=== PATIENT | female | born 1955 | race Caucasian/White ===

== ENCOUNTER 2016-05-23 23:57 | Inpatient (IN) ==
[2016-05-24 01:57] LABS: Basophils # 0.1 K/mcL (0.0-0.2); Basophils % 0.5 %; Eosinophils % 0.2 %; Hematocrit 44.1 % (35.3-44.9); Immature Granulocytes % 0.5 % (0-4); Lymphocytes # 1.3 K/mcL (0.6-4.6); Lymphocytes % 10.8 %; Mean Corpuscular Hemoglobin 30.7 pg (28.0-33.3); Mean Corpuscular Volume 90.4 fL (83.0-100.0); Mean Platelet Volume 8.7 fL (9.4-12.4); Monocytes % 8.9 %; Neutrophils # 9.3 K/mcL (1.6-8.9); Platelet Count 243 K/mcL (140-400); Red Blood Count 4.88 M/mcL (3.82-4.97); Red Cell Distribution Width 12.6 % (11.5-14.5); Segmented Neutrophils % 79.1 %
--- NOTE | 2016-05-24 02:00 | Emergency Department Note ---
Disposition Clinical Impression: Deep vein thrombosis of lower extremity Qualifiers: Affected thrombotic vein of extremity: unspecified vein of extremity Laterality : left Chronicity: acute Qualified Code(s): I82.402 - Acute embolism and thrombosis of unspecified deep veins of left lower extremity Disposition: Admitted As Inpatient Condition: Good Time of Disposition: 02:05 Extremity Problem HPI - General Chief complaint: ED Extremity Problem,Nontraumatic Stated complaint: DVT From GF Time Seen by Provider: 05/24/16 01:37 Source: patient Nursing Notes Reviewed: Yes Vital Signs Reviewed: Yes - History of Present Illness Pt Subjective Complaint: extremity pain Onset (ago): hour(s) Consistency: constant Injury Location: left Pain Scale: 8 Improves with: nothing Worsens with: range of motion, weight bearing, walking Associated symptoms: Reports: swelling, redness. Denies: chest pain, shortness of breath, abdominal pain, bowel/bladder symptoms, fever - Related Data Home Medications Medication Instructions Recorded Confirmed Alendronate Sodium [Fosamax] 70 mg PO QWEEK 05/23/16 05/23/16 Gabapentin [Neurontin] 100 mg PO BID 05/23/16 05/23/16 Lidocaine [Lmx 4] 30 gm TP QID 05/23/16 05/23/16 Meloxicam 7.5 mg PO BID 05/23/16 05/23/16 Methocarbamol [Robaxin-750] 750 mg PO BID 05/23/16 05/23/16 Simvastatin [Zocor] 10 mg PO HS 05/23/16 05/23/16 Allergies Allergy/AdvReac Type Severity Reaction Status Date / Time latex Allergy Rash Verified 05/24/16 00:11 All systems ED: reviewed and negative except as stated. Constitutional: Denies: fever, chills Eyes: Denies: eye pain ENT ED: Denies: ear pain Cardiovascular: Denies: chest pain Respiratory: Denies: cough Gastrointestinal: Denies: abdominal pain Genitourinary: Denies: dysuria Musculoskeletal: Denies: back pain, neck pain Integumentary: Denies: rash, abrasion, lesions Neurological: Denies: headache, weakness, numbness Psychiatric: Denies: anxiety Endocrine: Denies: fatigue Hematological/Lymphatic: Denies: easy bleeding Allergic/Immunologic: Denies: facial swelling Past Medical History - Past Medical History Medical history: Reports: hyperlipidemia Psychiatric history: Reports: no psych history - Social History Smoking Status: Current every day smoker Smokeless Tobacco Status: No Alcohol use: Reports: none Drug use: Reports: none Physical Exam - General Limitations: no limitations General appearance: alert, in no apparent distress - Head Head exam: normocephalic - Eye Eye exam: Present: EOMI - ENT ENT exam: mucous membranes moist - Neck Neck exam: Present: full ROM - Chest Chest inspection: Present: symmetric chest wall rise - Respiratory Respiratory exam: Absent: respiratory distress - Cardiovascular Cardiovascular exam: Present: regular rate - Abdominal Exam Abdominal exam: Present: soft, Non-Tender - Extremities Exam Extremities exam: Present: normal capillary refill - Expanded Lower Extremity Exam Upper leg exam: Present: tenderness, swelling, erythema. Absent: full ROM Knee exam: Present: tenderness, swelling. Absent: full ROM Lower leg exam: Present: tenderness, swelling, erythema. Absent: full ROM Ankle exam: Present: normal inspection Foot/toe exam: Present: normal inspection, full ROM Neurovascular/Tendon exam: Present: normal capillary refill. Absent: pulse deficit Gait: not tested/not observed - Neurological Exam Neurological exam: Present: alert, oriented X3 - Psychiatric Psychiatric exam: Present: normal affect, normal mood - Skin Skin exam: Present: warm, dry, intact, normal color Course Course Narrative: 61-year-old female smoker that arrives by squad with concern for DVT. She was seen at [facility] at the positive d-dimer. Patient was transferred to this facility to undergo lead venous duplex. - Reevaluation(s) Reevaluation #1: Reviewed patient's lower extremity venous duplex, findings were significant for several acute occlusive thrombi on the left extremity. Patient received Lovenox at [facility]. Discussed with Dr. Juárez who also had face to the patient and agreed for admission. Patient discussed with and accepted by Dr. Shaikh. Patient seen and examined. She is resting Things and then no acute distress. She did not look toxic. She had received Toradol at [facility] which she states has not improved. She declines analgesics here, stating as long she does not move her legs she feels fine. She denies any recent fevers, chills, injury, immobility, prior DVT, cancer, shortness of breath, hemoptysis Time: 02:08 Vital Signs Temperature 97.8 F 05/24/16 00:05 Pulse Rate 86 05/24/16 00:05 Respiratory Rate 18 05/24/16 00:05 Blood Pressure 104/63 05/24/16 00:05 O2 Sat by Pulse Oximetry 97 05/24/16 00:05 Temperature 97.8 F 05/24/16 00:05 Pulse Rate 86 05/24/16 00:05 Respiratory Rate 18 05/24/16 00:05 Blood Pressure 104/63 05/24/16 00:05 O2 Sat by Pulse Oximetry 97 05/24/16 00:05 Oxygen Delivery Oxygen Delivery Room Air Extremity Problem, Nontraumati - Lab Data Result diagrams: 05/24/16 01:45 Lab Results 05/24/16 05/24/16 05/24/16 Range/Units 01:45 01:45 01:45 WBC 11.7 H (4.3-11.1) K/mcL RBC 4.88 (3.82-4.97) M/mcL Hgb 15.0 (11.5-15.4) g/dL Hct 44.1 (35.3-44.9) % MCV 90.4 (83.0-100.0) fL MCH 30.7 (28.0-33.3) pg MCHC 34.0 (31.6-35.5) g/dL RDW 12.6 (11.5-14.5) % Plt Count 243 (140-400) K/mcL MPV 8.7 L (9.4-12.4) fL Immature Gran % 0.5 (0-4) % Seg Neutrophils % 79.1 % Lymphocytes % 10.8 % Monocytes % 8.9 % Eosinophils % 0.2 % Basophils % 0.5 % Neutrophils # 9.3 H (1.6-8.9) K/mcL Lymphocytes # 1.3 (0.6-4.6) K/mcL Monocytes # 1.0 (0.0-1.3) K/mcL Eosinophils # 0.0 (0.0-0.6) K/mcL Basophils # 0.1 (0.0-0.2) K/mcL PT 14.4 H (9.4-12.1) Seconds INR 1.3 APTT 37.4 H (26.0-36.0) Seconds Total Bilirubin 0.4 (0.2-1.2) mg/dL Direct Bilirubin 0.2 (0.0-0.5) mg/dL Indirect Bilirubin 0.2 (0.0-1.2) mg/dL AST 24 (5-34) Units/L ALT 41 (0-55) Units/L Alkaline Phosphatase 76 (38-126) Units/L Serum Total Protein 7.8 (6.0-8.3) g/dL Albumin 4.0 (3.5-5.0) g/dL Globulin 3.8 H (2.4-3.5) g/dL Albumin/Globulin Ratio 1.1 (1.1-2.2) Attestation Statement - Attestation Attestation: I, Juan Juárez MD, personally performed a history and physical exam of the patient and discussed their management with the midlevel provicer, PAC/LEAN LEADER. I reviewed the midlevel provider's note and agree with the documented findings, medical decision making, and plan of care. 61-year-old female transferred here from [facility] for possible DVT of the left leg. No prior history of DVT. Patient states that her leg was fine earlier today and she took a nap this afternoon. When she awoke about 4: 30 PM the left leg was painful and swollen and discolored. Denies any injury. There is been no cough or chest pain or shortness of breath. No fever. On examination patient is a well-developed well-nourished well-appearing female in no acute distress. She is alert and oriented 3. There is no cyanosis or diaphoresis. Breath sounds are clear and equal bilaterally. Heart regular rate and rhythm. Abdomen soft and nontender with normal bowel sounds. Left lower extremity is diffusely swollen from the groin down to the toes. There is some mild dusky discoloration. She has a strong palpable dorsalis pedis pulse. Labs reviewed. Venous Doppler of the left lower extremity was positive for diffuse acute thrombosis all the way up into the distal iliac veins. The hospitalist, Dr. Shaikh, was consulted and accepted admission of the patient.
[2016-05-24 02:03] LABS: INR 1.3; Prothrombin Time 14.4 Seconds (9.4-12.1)
[2016-05-24 02:05] LABS: Activated Partial Thrombo Time 37.4 Seconds (26.0-36.0)
[2016-05-24 02:13] LABS: Albumin/Globulin Ratio 1.1 (1.1-2.2); Bilirubin,Direct 0.2 mg/dL (0.0-0.5); Bilirubin,Indirect 0.2 mg/dL (0.0-1.2); Bilirubin,Total 0.4 mg/dL (0.2-1.2); Globulin 3.8 g/dL (2.4-3.5); Total Protein 7.8 g/dL (6.0-8.3)
[2016-05-24] MEDS ORDERED: Acetaminophen 325 MG TABLET PO PRN (03:35)
[2016-05-24] MEDS ORDERED: Naloxone 0.4 MG/ML INJ IVP PRN ×2 (03:35→06:52)
--- NOTE | 2016-05-24 03:40 | Internal Med History&Physical ---
<Tiara Carter - Last Filed: 05/24/16 04:51> Date of Encounter: 05/24/16 Time of Encounter: 03:38 Assessment and Plan (1) Deep vein thrombosis of lower extremity Current visit: Yes Status: Acute acute unprovoked LLE DVT CMP to determine renal function Eliquis potential discharge later today pending walk with PT and marriage and family social worker checking coverage of Eliquis consider outpatient testing for tumor markers; verify that patient is up to date on colonoscopy, mammogram, and pap smear Qualifiers: Affected thrombotic vein of extremity: unspecified vein of extremity Laterality: left Chronicity: acute Qualified Code(s): I82.402 - Acute embolism and thrombosis of unspecified deep veins of left lower extremity Internal Medicine - H&P: HPI Chief complaint: left leg pain and swelling Admitted From: Emergency Dept Plans for Post Hospital Care: Home History of present illness: Ms. Barnes is a 61 year old female smoker who woke up from a nap today with her entire left leg swollen, painful, and discolored. She states that she was fine when she lay down for her nap - her leg was without pain and of normal size and color. She has a past medical history of chronic back pain, osteoporosis, and hyperlipidemia. No recent travel or immobilizations. No hormone therapy. No history of cancer. No previous history of DVT. She describes the leg pain as dull and aching. The toradol shot she received at [facility] relieved the pain temporarily. Review of systems negative except for a runny nose the past 2- 3 days. Past Med Surg Social Fam HX - Past Medical History Medical history: hyperlipidemia, osteoporosis, other (chronic back pain) Psychiatric history: no psych history - Past Surgical History Surgical History: (x3), cataract (bilateral), hysterectomy, orthopedic , other (4 surgeries to left ankle), other (bilateral carpal tunnel release) - Social History Smoking Status: Current every day smoker Smokeless Tobacco Status: No Alcohol use: none Drug use: none - Family History Father Hx Family Cardiac Disorders: No Hx Family Respiratory Disorders: No Hx Family Cancer: Yes (Prostate) Hx Family GI Disorders: No Hx Family Genitourinary Disorders: No Hx Family Endocrine Disorder: No Hx Family Musculoskeletal Disorders: No Hx Family Neuromuscular Disorders: No Hx Family Neurologic Disorders: No Hx Family HEENT Disorders: No Hx Family Autoimmune Disorders: No Hx Family Reproductive Disorders: No Hx Family Psychosocial Disorders: No Hx Family Medical Disorders: No Mother Hx Family Cardiac Disorders: No Hx Family Respiratory Disorders: No Hx Family Cancer: Yes (Bone) Hx Family GI Disorders: No Hx Family Genitourinary Disorders: No Hx Family Endocrine Disorder: No Hx Family Musculoskeletal Disorders: No Hx Family Neuromuscular Disorders: No Hx Family Neurologic Disorders: No Hx Family HEENT Disorders: No Hx Family Autoimmune Disorders: No Hx Family Reproductive Disorders: No Hx Family Psychosocial Disorders: No Hx Family Medical Disorders: No Internal Medicine - H&P: Meds Alendronate Sodium [Fosamax] 70 mg PO QWEEK 05/23/16 [History] Gabapentin [Neurontin] 100 mg PO BID 05/23/16 [History] Lidocaine [Lmx 4] 30 gm TP QID 05/23/16 [History] Meloxicam 7.5 mg PO BID 05/23/16 [History] Methocarbamol [Robaxin-750] 750 mg PO BID 05/23/16 [History] Simvastatin [Zocor] 10 mg PO HS 05/23/16 [History] Allergies latex Allergy (Verified 05/24/16 00:11) Rash All Systems PM: A 10-system review of systems was performed and is negative for pertinent findings except as documented above in the HPI. - Constitutional Constitutional: no chills, no fever(s), no night sweats - EENT Eyes: no change in vision, no discharge, no pain, no photophobia Ears: no ear discharge, no ear pain, no tinnitus Nose, mouth and throat: nasal discharge, no dysphagia, no neck pain, no sore throat - Cardiovascular Cardiovascular ROS IM: no chest pain, no diaphoresis, no dyspnea, no lightheadedness, no palpitations, no syncope - Respiratory Respiratory: no cough, no dyspnea, no wheezing, no excessive phlegm production - Gastrointestinal Gastrointestinal: no abdominal pain, no diarrhea, no hematemesis, no hematochezia, no melena, no nausea, no vomiting - Genitourinary Genitourinary: no change in urinary stream, no dysuria, no flank pain, no hematuria - Musculoskeletal Musculoskeletal ROS IM: back pain (chronic), limited range of motion, other ( left leg warmth, swelling), no numbness, no tingling - Integumentary Integumentary IM: other (discoloration of leg), no rash - Neurological Neurological ROS: no confusion, no convulsions, no focal weakness, no numbness, no tingling, no tremor(s) - Hematologic/Lymphatic Hematologic/Lymphatic: no easy bruising - Constitutional Vitals: Temp Pulse Resp BP Pulse Ox 97.8 F 71 17 118/80 96 05/24/16 03:27 05/24/16 03:27 05/24/16 03:27 05/24/16 03:27 05/24/16 03:27 General appearance: Present: A&O X 3, no acute distress, answers questions appropriately - Head Head exam: Present: atraumatic, normocephalic - Eye Eye exam: Present: PERRL, conjuntiva pink, sclera anicteric Pupils: Present: PERRL - Neck Neck exam general surgery: Present: supple, trachea midline. Absent: lymphadenopathy - Respiratory Respiratory exam: Present: CTAB. Absent: accessory muscle use, rales, rhonchi, wheezes - Cardiovascular Cardiovascular exam: Present: RRR, +S1, +S2. Absent: diastolic murmur, gallop, rubs, systolic murmur - GI/Abdominal GI/Abdominal exam: Present: normal bowel sounds, soft, no peritoneal signs. Absent: distended, tenderness - Extremities Exam Extremities exam: Present: normal capillary refill, mottling, pedal edema ( extending to groin), tenderness (LLE). Absent: cyanotic, full ROM, normal inspection - Expanded Lower Extremities Exam Hip exam: Present: swelling, tenderness Upper Leg exam: Present: swelling, tenderness Knee exam: Present: swelling, tenderness. Absent: full ROM Lower Leg exam: Present: swelling, tenderness Ankle exam: Present: full ROM, swelling, tenderness Foot/Toe exam: Present: swelling, tenderness Neuro vascular tendon exam: Present: no vascular compromise. Absent: abnormal cap refill, pulse deficit, sensory deficit Gait: Present: not tested/not observed - Neurological Exam Neurological exam: Present: CN II-XII intact, oriented X3, no focal deficits. Absent: pronater drift, facial droop, speech deficit - Skin Skin exam: Present: dry, intact, mottled (LLE), petechiae (L thigh) Internal Med - H&P Results - Labs CBC & Chem 7: 05/24/16 01:45 <Brian Wolfe - Last Filed: 05/24/16 05:30> Date of Encounter: 05/24/16 Assessment and Plan (1) Tobacco abuse Current visit: Yes Status: Acute I have advised smoking cessation. We will provide nicotine replacement therapy. (2) Peripheral neuropathy Current visit: Yes Status: Acute We will continue home medication regimen of gabapentin. Qualifiers: Peripheral neuropathy type: polyneuropathy, unspecified Qualified Code(s): G62.9 - Polyneuropathy, unspecified Internal Medicine - H&P: HPI History of present illness: Ms. Barnes is a 61 year old female All Systems PM: A 10-system review of systems was performed and is negative for pertinent findings except as documented above in the HPI. - Constitutional Vitals: Temp Pulse Resp BP Pulse Ox 97.8 F 71 17 118/80 96 05/24/16 03:27 05/24/16 03:27 05/24/16 03:27 05/24/16 03:27 05/24/16 03:27 Internal Med - H&P Results - Labs CBC & Chem 7: 05/24/16 01:45 - Attending Attestation I examined this patient and my medical decision-making was reviewed with the Resident Physician, Dr Carter. I agree with the documented findings, disposition and treatment plan as described except to the extent set forth below. The patient presented to the hospital with sudden onset left leg swelling and pain which started yesterday. She describes the pain aching, severe involving the entire left leg centered around the knee, worse with bearing weight and trying to ambulate. Pain improved with IV Toradol. On exam she has left lower extremity nonpitting edema and mottling. Dorsalis pedis pulses palpable. Heart regular rate and rhythm. Lungs clear. Plan: For acute left lower extremity DVT we will initiate Eliquis. I have had an extensive discussion of risks and benefits of both warfarin and NOACs. The patient chose treatment with the latter. We recommend a hypercoagulable workup and evaluation for occult malignancy to be conducted outpatient. She is at high risk for morbidity and complications due to acute DVT and treatment with IV opiates for severe pain.
[2016-05-24] MEDS: *HR* Morphine 2 MG/ML SYRINGE IVP PRN ×3 (03:49→20:17)
[2016-05-24 06:18] LABS: Albumin 3.6 g/dL (3.5-5.0); Bilirubin,Total 0.3 mg/dL (0.2-1.2); Calcium 9.2 mg/dL (8.6-10.8); Globulin 3.6 g/dL (2.4-3.5); Potassium 4.5 mEq/L (3.5-4.5); Total Protein 7.2 g/dL (6.0-8.3)
[2016-05-24] MEDS ORDERED: Ondansetron 4 MG/2 ML VIAL IVP PRN (06:52)
[2016-05-24] MEDS: APIXABAN 5 MG TABLET PO SCH ×2 (08:37→20:17)
[2016-05-24] MEDS: Gabapentin 100 MG CAPSULE PO SCH ×2 (08:37→20:18)
[2016-05-24] MEDS: Methocarbamol 750 MG TABLET PO SCH ×2 (08:37→20:17)
[2016-05-24] MEDS: 0.9 % Sodium Chloride 1,000 ML IVC SCH ×2 (08:38→20:16)
[2016-05-24] MEDS: *HR* HYDROcodone/Acet 5/325 mg TABLET PO PRN (11:37)
--- NOTE | 2016-05-24 17:13 | Internal Med Progress Note ---
Date of Encounter: 05/24/16 Time of Encounter: 10:00 - Assessment and plan (1) Deep vein thrombosis of lower extremity Current Visit: Yes Status: Acute Assessment and plan: Acute DVT without clear provoking factors. Will treat patient with Eliquis 10mg po bid x 7 days, then 5mg bid. Patient needed follow-up hematology as outpatient for further test for the possible etiology of DVT Qualifiers: Affected thrombotic vein of extremity: unspecified vein of extremity Laterality: left Chronicity: acute Qualified Code(s): I82.402 - Acute embolism and thrombosis of unspecified deep veins of left lower extremity (2) Peripheral neuropathy Current Visit: Yes Status: Acute Assessment and plan: Stable chronic Qualifiers: Peripheral neuropathy type: polyneuropathy, unspecified Qualified Code(s): G62.9 - Polyneuropathy, unspecified (3) Tobacco abuse Current Visit: Yes Status: Acute Assessment and plan: Smoking cessation education - Time Spent With Patient 25 - 35 minutes - Subjective Interval history: Patient is a 61-year-old female admitted for left leg acute DVT. Her past medical history is significant for hyperlipidemia, osteoporosis. No significant family history for thrombosis disease. Patient was seen and examined. She is awake alert, oriented 3. Complex of mild left leg pain. In no acute distress. Vitals are stable. On eliquis po treatment. Patient said the left leg pain has improved after treatment. Will continue current treatment and closely monitor patient. - Constitutional Vitals: Temp Pulse Resp BP Pulse Ox 97.8 F 67 15 106/65 94 L 05/24/16 15:13 05/24/16 15:13 05/24/16 15:13 05/24/16 15:13 05/24/16 15:13 General appearance: Present: A&O X 3, no acute distress, answers questions appropriately - Head Head exam: Present: atraumatic, normocephalic - Eye Eye exam: Present: PERRL, conjuntiva pink, sclera anicteric Pupils: Present: PERRL - Neck Neck exam general surgery: Present: supple, trachea midline. Absent: lymphadenopathy - Respiratory Respiratory exam: Present: CTAB. Absent: accessory muscle use, rales, rhonchi, wheezes - Cardiovascular Cardiovascular exam: Present: RRR, +S1, +S2. Absent: diastolic murmur, gallop, rubs, systolic murmur - GI/Abdominal GI/Abdominal exam: Present: normal bowel sounds, soft, no peritoneal signs. Absent: distended, tenderness - Extremities Exam Extremities exam: Present: calf tenderness, warm, radial pulses palpable and symetrical. Absent: cyanotic, pedal edema Additional comments: Left leg is swelling and redness. Tenderness on left thigh and calf. - Neurological Exam Neurological exam: Present: CN II-XII intact, oriented X3, no focal deficits. Absent: pronater drift, facial droop, speech deficit - Skin Skin exam: Present: dry, intact Internal Medicine: Result - Labs CBC & Chem 7: 05/24/16 01:45 05/24/16 04:34 - ABG Interpretation ABG results: PT/INR, D-dimer PT 14.4 Seconds (9.4-12.1) H 05/24/16 01:45 - VTE Reasons for not Prescribing Prophylaxis: Not indicated-Anticoagulated or INR therapeutic Consult Discharge Plan - Plan [facility]: [facility] [Primary Care Provider[facility] -
--- NOTE | 2016-05-24 18:38 | Venous Imaging Report ---
LE Venous Duplex Patient Name:Nicole Barnes Order Number:[id number] Procedure Date:05/24/2016 Date:1955ge:61 yrs Gender:Female Location:[facility] ED Room #: IWA Hat Brim Curler:Rubi Franklin Referring MD:Juan Juárez MD sagger filler:[facility] Reading MD:Andrea Land MD Primary Indications:r/o DVT Secondary Indications: Impressions: Acute deep venous thrombosis is present from the left distal iliac through tibial veins. Acute superficial venous thrombosis is presen itn the left greater saphenous vein. Recommendations: After imaging the patient returned to their room. Test completed on 05/24/2016 at 12:48:00 am. Critical findings reported to -ED- in person at 12:55:00 am on 05/24/2016 by Rubi Franklin. Findings Venous Duplex Results: Left: There is an acute occlusive thrombus seen in the left distal iliac. There is an acute occlusive thrombus seen in the left common femoral. There is an acute occlusive thrombus seen in the left superficial femoral. There is an acute occlusive thrombus seen in the left popliteal. There is an acute occlusive thrombus seen in the left peroneal. There is an acute occlusive thrombus seen in the left gastrocnemius. There is an acute occlusive thrombus seen in the left saphenofemoral junction. There is an acute occlusive thrombus seen in the left great saphenous. The left peroneal vein was not well visualized. Prior Study: No prior study available for comparison. Lower Extremity Venous Duplex Side Vein Compress Spontaneous Flow Augment Diameter (cm) Depth (cm) Left Distal Iliac None no Absent no Left Common Femoral None no Absent no Left Superficial Femoral None no Absent no Left Popliteal None no Absent no Left Posterior Tibial Normal yes Phasic yes Left Peroneal None no Absent no Left Gastrocnemius None no Absent no Left Saphenofemoral Junction None no Absent no Left Great Saphenous None no Absent no Left Lesser Saphenous Normal yes Phasic yes Right Common Femoral Normal yes Phasic yes Updated by Andrea Land MD on 05/24/2016 6:32:45 PM electronically signed on 05/24/2016 6:33:07 PM with status of Final
[2016-05-25 05:08] LABS: Basophils # 0.1 K/mcL (0.0-0.2); Basophils % 0.7 %; Eosinophils # 0.2 K/mcL (0.0-0.6); Eosinophils % 2.5 %; Hematocrit 37.3 % (35.3-44.9); Immature Granulocytes % 0.4 % (0-4); Lymphocytes # 1.3 K/mcL (0.6-4.6); Lymphocytes % 14.9 %; Mean Corpuscular HGB Conc 33.2 g/dL (31.6-35.5); Mean Corpuscular Volume 93.3 fL (83.0-100.0); Mean Platelet Volume 9.1 fL (9.4-12.4); Monocytes # 0.8 K/mcL (0.0-1.3); Monocytes % 9.6 %; Neutrophils # 6.1 K/mcL (1.6-8.9); Platelet Count 210 K/mcL (140-400); Red Cell Distribution Width 12.8 % (11.5-14.5); Segmented Neutrophils % 71.9 %
[2016-05-25 05:09] LABS: Hemoglobin 12.4 g/dL (11.5-15.4)
[2016-05-25 05:26] LABS: BUN/Creatinine Ratio 30 (6-26); Blood Urea Nitrogen 20 mg/dL (7-20); Calcium 8.5 mg/dL (8.6-10.8); Carbon Dioxide 22 mEq/L (19-29); Chloride 105 mEq/L (98-109); Glucose 129 mg/dL (70-99); Osmolality,Calculated 284 (280-300); Potassium 4.7 mEq/L (3.5-4.5); Sodium 135 mEq/L (136-145); eGFR For African Americans > 60 (> 60); eGFR For Non-African Americans > 60 (> 60)
[2016-05-25] MEDS: *HR* HYDROcodone/Acet 5/325 mg TABLET PO PRN ×2 (07:01→21:00)
[2016-05-25] MEDS: Gabapentin 100 MG CAPSULE PO SCH ×2 (08:31→20:56)
[2016-05-25] MEDS: APIXABAN 5 MG TABLET PO SCH ×2 (08:31→20:56)
[2016-05-25] MEDS: Methocarbamol 750 MG TABLET PO SCH ×2 (08:32→20:56)
[2016-05-25] MEDS: *HR* Morphine 2 MG/ML SYRINGE IVP PRN ×2 (08:32→18:00)
[2016-05-25] MEDS: 0.9 % Sodium Chloride 1,000 ML IVC SCH ×2 (09:32→23:07)
--- NOTE | 2016-05-25 18:17 | Internal Med Progress Note ---
Date of Encounter: 05/25/16 Time of Encounter: 10:00 - Assessment and plan (1) Deep vein thrombosis of lower extremity Current Visit: Yes Status: Acute Assessment and plan: Acute DVT without clear provoking factors. Will treat patient with Eliquis 10mg po bid x 7 days, then 5mg bid. Patient needed follow-up hematology as outpatient for further test for the possible etiology of DVT Qualifiers: Affected thrombotic vein of extremity: unspecified vein of extremity Laterality: left Chronicity: acute Qualified Code(s): I82.402 - Acute embolism and thrombosis of unspecified deep veins of left lower extremity (2) Peripheral neuropathy Current Visit: Yes Status: Acute Assessment and plan: Stable chronic Qualifiers: Peripheral neuropathy type: polyneuropathy, unspecified Qualified Code(s): G62.9 - Polyneuropathy, unspecified (3) Tobacco abuse Current Visit: Yes Status: Acute Assessment and plan: Smoking cessation education - Time Spent With Patient 25 - 35 minutes - Subjective Interval history: Patient is a 61-year-old female admitted for left leg acute DVT. Her past medical history is significant for hyperlipidemia, osteoporosis. No significant family history for thrombosis disease. Patient was seen and examined. She is awake alert, oriented 3. Complex of mild-moderate left leg pain. In no acute distress. Vitals are stable. On eliquis po treatment. Patient said the left leg pain remain same level with yesterday. Will continue current treatment and closely monitor patient. - Constitutional Vitals: Temp Pulse Resp BP Pulse Ox 98.2 F 66 15 119/77 95 05/25/16 15:11 05/25/16 15:11 05/25/16 15:11 05/25/16 15:11 05/25/16 15:11 General appearance: Present: A&O X 3, no acute distress, answers questions appropriately - Head Head exam: Present: atraumatic, normocephalic - Eye Eye exam: Present: PERRL, conjuntiva pink, sclera anicteric Pupils: Present: PERRL - Neck Neck exam general surgery: Present: supple, trachea midline. Absent: lymphadenopathy - Respiratory Respiratory exam: Present: CTAB. Absent: accessory muscle use, rales, rhonchi, wheezes - Cardiovascular Cardiovascular exam: Present: RRR, +S1, +S2. Absent: diastolic murmur, gallop, rubs, systolic murmur - GI/Abdominal GI/Abdominal exam: Present: normal bowel sounds, soft, no peritoneal signs. Absent: distended, tenderness - Extremities Exam Extremities exam: Present: calf tenderness (Left leg), warm, radial pulses palpable and symetrical. Absent: cyanotic, pedal edema Additional comments: Left leg swelling, tenderness - Neurological Exam Neurological exam: Present: CN II-XII intact, oriented X3, no focal deficits. Absent: pronater drift, facial droop, speech deficit - Skin Skin exam: Present: dry, intact Internal Medicine: Result - Labs CBC & Chem 7: 05/25/16 04:54 05/25/16 04:54 Labs: Short CBC 05/25/16 Range/Units 04:54 WBC 8.5 (4.3-11.1) K/mcL Hgb 12.4 D (11.5-15.4) g/dL Hct 37.3 (35.3-44.9) % Plt Count 210 (140-400) K/mcL Neutrophils # 6.1 (1.6-8.9) K/mcL BMP 05/25/16 04:54 Sodium 135 L Potassium 4.7 H Chloride 105 Carbon Dioxide 22 BUN 20 Creatinine 0.66 Glucose 129 H Calcium 8.5 L - ABG Interpretation ABG results: PT/INR, D-dimer PT 14.4 Seconds (9.4-12.1) H 05/24/16 01:45 - VTE Reasons for not Prescribing Prophylaxis: Not indicated-Anticoagulated or INR therapeutic Consult Discharge Plan - Plan [facility]errals: [facility] [Primary Care Provider] -
[2016-05-26] MEDS: *HR* HYDROcodone/Acet 5/325 mg TABLET PO PRN ×2 (03:14→08:54)
[2016-05-26] MEDS: APIXABAN 5 MG TABLET PO SCH ×2 (08:48→21:43)
[2016-05-26] MEDS: Gabapentin 100 MG CAPSULE PO SCH ×2 (08:48→21:43)
[2016-05-26] MEDS: Methocarbamol 750 MG TABLET PO SCH ×2 (08:48→21:43)
[2016-05-26] MEDS: 0.9 % Sodium Chloride 1,000 ML IVC SCH (14:54)
--- NOTE | 2016-05-26 18:21 | Internal Med Progress Note ---
Date of Encounter: 05/26/16 Time of Encounter: 10:00 - Assessment and plan (1) Deep vein thrombosis of lower extremity Current Visit: Yes Status: Acute Assessment and plan: Acute DVT without clear provoking factors. Will treat patient with Eliquis 10mg po bid x 7 days, then 5mg bid. Patient needed follow-up hematology as outpatient for further test for the possible etiology of DVT Qualifiers: Affected thrombotic vein of extremity: unspecified vein of extremity Laterality: left Chronicity: acute Qualified Code(s): I82.402 - Acute embolism and thrombosis of unspecified deep veins of left lower extremity (2) Peripheral neuropathy Current Visit: Yes Status: Acute Assessment and plan: Stable chronic Qualifiers: Peripheral neuropathy type: polyneuropathy, unspecified Qualified Code(s): G62.9 - Polyneuropathy, unspecified (3) Tobacco abuse Current Visit: Yes Status: Acute Assessment and plan: Smoking cessation education - Time Spent With Patient 25 - 35 minutes - Subjective Interval history: Patient is a 61-year-old female admitted for left leg acute DVT. Her past medical history is significant for hyperlipidemia, osteoporosis. No significant family history for thrombosis disease. Patient was seen and examined. She is awake alert, oriented 3. Complex of mild-moderate left leg pain, about the same with previously. Improved redness of left leg. In no acute distress. Vitals are stable. On eliquis po treatment. Will continue current treatment and closely monitor patient. - Constitutional Vitals: Temp Pulse Resp BP Pulse Ox 98.3 F 66 16 112/64 94 L 05/26/16 15:45 05/26/16 15:45 05/26/16 15:45 05/26/16 15:45 05/26/16 15:45 General appearance: Present: A&O X 3, no acute distress, answers questions appropriately - Head Head exam: Present: atraumatic, normocephalic - Eye Eye exam: Present: PERRL, conjuntiva pink, sclera anicteric Pupils: Present: PERRL - Neck Neck exam general surgery: Present: supple, trachea midline. Absent: lymphadenopathy - Respiratory Respiratory exam: Present: CTAB. Absent: accessory muscle use, rales, rhonchi, wheezes - Cardiovascular Cardiovascular exam: Present: RRR, +S1, +S2. Absent: diastolic murmur, gallop, rubs, systolic murmur - GI/Abdominal GI/Abdominal exam: Present: normal bowel sounds, soft, no peritoneal signs. Absent: distended, tenderness - Extremities Exam Extremities exam: Present: warm, radial pulses palpable and symetrical. Absent : calf tenderness, cyanotic, pedal edema Additional comments: Left leg swelling, redness, and tenderness - Neurological Exam Neurological exam: Present: CN II-XII intact, oriented X3, no focal deficits. Absent: pronater drift, facial droop, speech deficit - Skin Skin exam: Present: dry, intact Internal Medicine: Result - Labs CBC & Chem 7: 05/25/16 04:54 05/25/16 04:54 - ABG Interpretation ABG results: PT/INR, D-dimer PT 14.4 Seconds (9.4-12.1) H 05/24/16 01:45 - VTE Reasons for not Prescribing Prophylaxis: Not indicated-Anticoagulated or INR therapeutic Consult Discharge Plan - Plan [facility]errals: [facility] [Primary Care Provider] -
[2016-05-26] MEDS: *HR* Morphine 2 MG/ML SYRINGE IVP PRN (19:40)
[2016-05-27 03:56] LABS: Basophils % 0.5 %; Eosinophils # 0.2 K/mcL (0.0-0.6); Eosinophils % 1.8 %; Hematocrit 33.9 % (35.3-44.9); Hemoglobin 11.4 g/dL (11.5-15.4); Immature Granulocytes % 0.5 % (0-4); Lymphocytes # 1.7 K/mcL (0.6-4.6); Mean Corpuscular HGB Conc 33.6 g/dL (31.6-35.5); Mean Corpuscular Hemoglobin 31.1 pg (28.0-33.3); Mean Corpuscular Volume 92.4 fL (83.0-100.0); Mean Platelet Volume 8.8 fL (9.4-12.4); Monocytes # 0.9 K/mcL (0.0-1.3); Monocytes % 10.1 %; Neutrophils # 5.8 K/mcL (1.6-8.9); Platelet Count 233 K/mcL (140-400); Red Blood Count 3.67 M/mcL (3.82-4.97); Red Cell Distribution Width 12.2 % (11.5-14.5); Segmented Neutrophils % 67.1 %
[2016-05-27 04:08] LABS: BUN/Creatinine Ratio 20 (6-26); Blood Urea Nitrogen 14 mg/dL (7-20); Calcium 8.6 mg/dL (8.6-10.8); Carbon Dioxide 24 mEq/L (19-29); Chloride 107 mEq/L (98-109); Glucose 115 mg/dL (70-99); Osmolality,Calculated 291 (280-300); Potassium 4.3 mEq/L (3.5-4.5); Sodium 140 mEq/L (136-145); eGFR For African Americans > 60 (> 60); eGFR For Non-African Americans > 60 (> 60)
[2016-05-27] MEDS: Gabapentin 100 MG CAPSULE PO SCH (09:24)
[2016-05-27] MEDS: Methocarbamol 750 MG TABLET PO SCH (09:24)
[2016-05-27] MEDS: APIXABAN 5 MG TABLET PO SCH (09:24)
[2016-05-27 11:08] VITALS: BP 120/77
--- NOTE | 2016-05-27 11:22 | Discharge Summary ---
Date of Encounter: 05/27/16 Time of Encounter: 11:16 - Discharge Diagnosis (1) Deep vein thrombosis of lower extremity Priority: Primary Status: Acute Qualifiers: Affected thrombotic vein of extremity: tibial Laterality: left Chronicity : acute Qualified Code(s): I82.442 - Acute embolism and thrombosis of left tibial vein (2) Low back pain Priority: Secondary Status: Chronic Qualifiers: Chronicity: chronic Back pain laterality: midline Sciatica presence: without sciatica Qualified Code(s): M54.5 - Low back pain; G89.29 - Other chronic pain (3) Peripheral neuropathy Priority: Secondary Status: Chronic Qualifiers: Peripheral neuropathy type: polyneuropathy, unspecified Qualified Code(s): G62.9 - Polyneuropathy, unspecified - Discharge Medications Prescriptions: HYDROcodone/Acet 5/325 mg [[place] 5-325 mg] 1 tab PO Q6HR PRN #20 tablet PRN Reason: Pain Apixaban [Eliquis] 5 mg PO BID #30 tablet Apixaban [Eliquis] 10 mg PO BID #8 tablet Sennosides/Docusate Sodium [Senna Plus] 1 each PO BID PRN #30 tablet PRN Reason: Constipation Home Medications: Alendronate Sodium [Fosamax] 70 mg PO QWEEK 05/23/16 [History] Gabapentin [Neurontin] 100 mg PO BID 05/23/16 [History] Lidocaine [Lmx 4] 1 appl TP QID 05/23/16 [History] Methocarbamol [Robaxin-750] 750 mg PO BID 05/23/16 [History] Simvastatin [Zocor] 10 mg PO HS 05/23/16 [History] Calcium Citrate/Vitamin D3 [Eql Calcium Citrate-Vit D Cplt] 1 tab PO BID [History] Apixaban [Eliquis] 5 mg PO BID #30 tablet 05/27/16 [Rx] Apixaban [Eliquis] 10 mg PO BID #8 tablet 05/27/16 [Rx] HYDROcodone/Acet 5/325 mg [[place] 5-325 mg] 1 tab PO Q6HR PRN #20 tablet [Rx] Sennosides/Docusate Sodium [Senna Plus] 1 each PO BID PRN #30 tablet 05/27/16 [ Rx] Allergies/Adverse Reactions: Allergies latex Allergy (Verified 05/24/16 00:11) Rash Date of admission: 05/24/16 07:27 [facility] Discharging clinician: Nhung Jarquin Anticipated date of discharge: 05/27/16 - Patient Status Disposition: Home, Self-Care Condition: Good Functional capacity at discharge: independent ambulation (limited mobility for first week after discharge) Overall status at discharge: patient is progressing back to baseline - Discharge Instructions Follow Up With: [facility] [Primary Care Provider] - - Diet and Activity Activity: increase activity as tolerated (limited ambulation for a week after discharge) Diet: low fat, low cholesterol Hospital course: Ms. Barnes is a 61 year old female with above medical problems, admitted with left lower extremity pain and swelling. She was noted to have a daily VT of left distal iliac vein through the left tibial vein. She was started on anticoagulation with oral Eliquis, which she tolerated well. She was given supportive care with pain control. Physical therapy evaluation was done and recommended outpatient physical therapy. She had a prolonged hospitalization due to insurance issues and [place] authorization for the new anticoagulant. She is currently medically stable for discharge, with improving symptoms. She is recommended to limit her activity for the first week after discharge to avoid PE. She is also noted to have a drop in hemoglobin and her current hemoglobin is 11.4, which is still acceptable. She only has bowel movements once in 3-4 days and did not have any since admission, did not notice any rectal bleed, hematuria, no sore complaints. She has no symptoms of anemia. She was recommended to present to the emergency room in the event of any bleeding, chest pain or shortness of breath and she verbalized understanding. - Time Spent with Patient Total time spent providing and/or coordinating discharge services: Greater than 30 minutes (45 min) - Constitutional Vitals: Temp Pulse Resp BP Pulse Ox 98.3 F 63 17 120/77 95 05/27/16 07:05 05/27/16 07:05 05/27/16 07:05 05/27/16 07:05 05/27/16 07:05 General appearance: Present: A&O X 3, no acute distress, answers questions appropriately - Extremities Exam Extremities exam: Present: pedal edema, tenderness (left leg diffusely swollen, warm and mildly tender; improving erythema), warm, radial pulses palpable and symetrical. Absent: calf tenderness, cyanotic - VTE Reasons for not Prescribing Prophylaxis: Not indicated-Anticoagulated or INR therapeutic
== END 2016-05-27 12:49 | disposition home or self-care (01) | DRG 301 ==
LOC: EMEROO 23:57 → 3BNU 23:57 → SUATTDRO 05-24 02:12 → 3BNU 05-24 02:50 → SUATTDRO 05-24 07:27 → 3ANU 05-26 16:43
PROVIDERS: ADMIT Internal Medicine; ATTEND Internal Medicine